=== PATIENT | female | born 1980 | race Caucasian/White ===

== ENCOUNTER 2017-02-14 12:32 | Emergency (ER) | payer SELFPAY ==
[~2017-02-14] VITALS: Ht 162.6 cm; Wt 61.4 kg
[2017-02-14 12:34] VITALS: BP 108/62; PULSE 80; RESP 16; TEMP 98.3; O2SAT 98
--- NOTE | 2017-02-14 13:48 | PD ---
HPI Chief Complaint: Skin Problem Time Seen by Provider: 13:47 Travel History International Travel<30 days: No Contact w/Intl Traveler<30days: No Traveled to known affect area: No History of Present Illness HPI 36 YO F presents to the ED for evaluation of sunburn of the trunk. Sustained yesterday. Denies F/C, N/V. Patient states that she treated with aloe vera gel and Tylenol with no improvement of symptoms.Denies chronic health problems. Takes no daily medications. NKDA. PFSH Past Medical History ?: Not Social History Tobacco Use: No Allergies-Medications (Allergen,Severity, Reaction): Coded Allergies: No Known Allergies (Unverified , 02/14/17) Reported Meds & Prescriptions Reported Meds & Active Scripts Active Ibuprofen 600 Mg Tab 600 Mg PO Q8HR PRN Review of Systems Except as stated in HPI: all other systems reviewed are Neg Physical Exam Narrative GENERAL: Well-nourished, well-developed white female in NAD. SKIN: Focused skin assessment warm/dry. There is a non-blistering, blanching sunburn of the abdomen and back. HEAD: Normocephalic. EYES: No scleral icterus. No injection or drainage. NECK: Supple, trachea midline. No JVD or lymphadenopathy. CARDIOVASCULAR: Regular rate and rhythm without murmurs, gallops, or rubs. RESPIRATORY: Breath sounds equal bilaterally. No accessory muscle use. GASTROINTESTINAL: Abdomen soft, non-tender, nondistended. MUSCULOSKELETAL: No cyanosis, or edema. Ambulates normally. BACK: Nontender without obvious deformity. No CVA tenderness. Data Data Last Documented VS Vital Signs Date Time Temp Pulse Resp B/P Pulse Ox O2 Delivery O2 Flow Rate FiO2 02/14/17 12:34 98.3 80 16 108/62 98 MDM Medical Decision Making Medical Screen Exam Complete: Yes Emergency Medical Condition: Yes Differential Diagnosis superficial sunburn versus skin rash versus burn versus other Narrative Course 36 YO F presents to the ED for evaluation of sunburn of the trunk. Sustained yesterday. Denies N/V. Patient states that she treated with aloe vera gel and Tylenol with no improvement of symptoms. Vitals reviewed. There is a non- blistering, blanching sunburn of the abdomen and back. The patient was advised to utilize OTC topical sprays such as Solarcaine or Foille. Also recommended aloe vera gel kept in the refrigerator. Advised to avoid heat, warm baths. I prescribed a short course of Ibuprofen up to 3 times per day to reduce pain and inflammation. The patient indicated understanding of the instructions and is agreeable to the care plan. She is stable and discharged home. Diagnosis Primary Impression: Superficial sunburn Referrals: Primary Care Physician Patient Instructions: General Instructions, Sunburn (ED) Additional Instructions: Rest, hydrate. Take 600 mg Ibuprofen every 6 hours to reduce pain and inflammation. Apply topical Solarcaine or Foille, available at the drug store a few times per day. Aloe gel kept in the refrigerator may help to soothe your burn as well. Wear sunscreen, apply liberally every few hours that you are in the sun. Follow up with your primary care provider. Return to the ED for any urgent or emergent medical condition. Med/Other Pt SpecificInfo: Prescription(s) given Scripts Ibuprofen 600 Mg Cwd331 Mg PO Q8HR PRN (PAIN) #15 TAB Ref 0 Prov:Gianna Agudelo MD 02/14/17 Disposition: 01 DISCHARGE HOME Condition: Stable Aruna Thurston Feb 14, 2017 13:48
[2017-02-14] MEDS ORDERED: IBUP-232 PO (13:59)
== END 2017-02-14 14:08 | disposition home or self-care (01) ==
LOC: NEPD 12:32
DX: L55.9 Sunburn, unspecified (principal)
CPT/HCPCS: 99282